=== PATIENT | female | born 1950 ===

== ENCOUNTER 2025-04-08 06:00 | Day surgery (SDC) | payer OTHER ==
[2025-04-01 13:34] VITALS: BP 148/84
[~2025-04-08] VITALS: Ht 157.5 cm; Wt 77.1 kg
[~2025-04-08 06:00] MED LIST: ASA81 MG PO; COZAAR100 MG PO; GLIMEPIRIDE2 MG; LEVOTHYROXINE25 MCG PO; NEURONTIN300 MG PO; PLAVIX75 MG PO; VITAMIN D; ZOCOR20 MG PO
[2025-04-08] MEDS ORDERED: CEFAZOLIN SODIUM 1,000 MG VIAL ONE (07:17)
[2025-04-08] MEDS ORDERED: GENTAMICIN SULFATE 40 MG/ML VIAL ONE (07:49)
[2025-04-08] MEDS ORDERED: LIDOCAINE HCL 1%/EPINEPHRINE 20ML VIAL IJ ONE (09:09)
[2025-04-08] MEDS ORDERED: MORPHINE SULFATE 4 MG/ML VIAL IV ONE (11:20)
[2025-04-08] MEDS ORDERED: MACROBID 100 M100 MG PO (11:41)
[2025-04-08] MEDS ORDERED: TRAM1TAB98 PO (11:42)
== END 2025-04-08 12:55 | disposition home or self-care (01) ==
LOC: CIR.AMB 06:00
PROVIDERS: ATTEND Obstetrics & Gynecology Gynecology
DX: N81.3 Complete uterovaginal prolapse (principal); Z88.6 Allergy status to analgesic agent; N81.82 Incompetence or weakening of pubocervical tissue; N81.83 Incompetence or weakening of rectovaginal tissue